=== PATIENT | male | born 1930 | race Hispanic/Latino ===

== ENCOUNTER 2018-06-06 09:20 | Observation (INO) | payer MEDICARE ==
[2018-06-06 09:35] VITALS: BMI 22.9
[2018-06-06] MEDS ORDERED: Sodium Chloride 0.9% 500 ML IV STA (10:12)
--- NOTE | 2018-06-06 10:21 | ED PDOC ---
HPI: General Adult Additional History Per: Patient Additional Complaint(s): 87 y/o M with PMH of HTN and HLD sent to the ER by PMD for evaluation and treatment of recent blood work abnormalities. Patient is also c/o 3 weeks hx of chest discomfort. Reports non-radiating chest pain on exertion, denies any SOB, dizziness, blurred vision, palpitations, weakness, headaches, f/c/n/v/d. Patient was seen by PMD yesterday for routine blood work check and found to have high WBC and low Hgb and Plts as per patient. PMH: HTN and HLD PSH: Hip replacement 10 years ago Allg: NKDA FH: Denies heart disease, + lung cancers in family SH: 5 years hx of smoking 60 years ago, denies alcohol or illicit drug use PMD: Dr. Hill <Michel Olmos - Last Filed: 06/06/18 10:21> <Singh Kelley - Last Filed: 06/06/18 13:41> Time Seen by Provider: 06/06/18 09:56 Chief Complaint (Nursing): Chest Pain Supervising Attending Note - Supervising Attending Note The Documented history was done by the: Physician Tool And Cutter Grinder The documented physical exam was done by the: Physician Tool And Cutter Grinder The documented procedures were done by the: Physician Tool And Cutter Grinder - Attestation: I have personally seen and examined this patient.: Yes I have fully participated in the care of the patient.: Yes I have reviewed all pertinent clinical information, including history, physical exam and plan: Yes - Notes: Notes:: Abnormal labs on routine blood work. Chest pain on exertion. <Singh Kelley - Last Filed: 06/06/18 13:41> Past Medical History Vital Signs: Last Vital Signs Temp 98 F 06/06/18 09:34 Pulse 73 06/06/18 09:41 Resp 14 06/06/18 09:41 BP 158/65 H 06/06/18 09:34 Pulse Ox 100 06/06/18 09:41 - Medical History PMH: Benign Prostatic Hyperplasia, HTN, Hypercholesterolemia Denies: HIV, Chronic Kidney Disease - Surgical History Surgical History: Cholecystectomy (lap rosie done 12/14/15) - Family History Family History: States: Unknown Family Hx - Immunization History Hx Tetanus Toxoid Vaccination: Yes Hx Influenza Vaccination: Yes Hx Pneumococcal Vaccination: Yes <OlmosMichel - Last Filed: 06/06/18 10:21> Vital Signs: Last Vital Signs Temp 98 F 06/06/18 09:34 Pulse 73 06/06/18 09:41 Resp 14 06/06/18 09:41 BP 122/68 06/06/18 10:04 Pulse Ox 100 06/06/18 10:24 <Singh Kelley - Last Filed: 06/06/18 13:41> - Home Medications Home Medications: Ambulatory Orders Medication Instructions Recorded Docusate [Colace] 100 mg PO DAILY #0 cap 12/25/15 Lisinopril [Zestril] 5 mg PO DAILY #0 tab 12/25/15 Tamsulosin [Flomax] 0.4 mg PO DAILY #0 cap 12/25/15 - Allergies Allergies/Adverse Reactions: Allergies Allergy/AdvReac Type Severity Reaction Status Date / Time No Known Allergies Allergy Verified 12/25/15 18:11 Review of Systems Constitutional: Negative for: Fever Eyes: Negative for: Pain ENT: Negative for: Ear Pain Cardiovascular: Positive for: Chest Pain. Negative for: Palpitations, Orthopnea, Paroxysmal Noc. Dyspnea Respiratory: Negative for: Cough, Shortness of Breath, Hemoptysis Gastrointestinal: Negative for: Nausea, Vomiting, Abdominal Pain Genitourinary Male: Negative for: Dysuria, Frequency Musculoskeletal: Negative for: Neck Pain, Shoulder Pain Skin: Negative for: Rash Neurological: Negative for: Weakness, Numbness, Incoordination, Confusion Psych: Negative for: Anxiety, Depression <Michel Olmos - Last Filed: 06/06/18 10:21> Physical Exam - Physical Exam Appears: Positive for: No Acute Distress Head Exam: Positive for: ATRAUMATIC, NORMAL INSPECTION, NORMOCEPHALIC Skin: Positive for: Normal Color Eye Exam: Positive for: Normal appearance ENT: Positive for: Normal ENT Inspection Neck: Positive for: Normal Cardiovascular/Chest: Positive for: Regular Rate, Rhythm, Chest Non Tender. Negative for: Bradycardia, Tachycardia, Irregularly Irregular Respiratory: Positive for: Normal Breath Sounds. Negative for: Decreased Breath Sounds, Accessory Muscle Use, Crackles, Stridor, Wheezing Gastrointestinal/Abdominal: Positive for: Normal Exam, Bowel Sounds, Soft. Negative for: Tenderness, Distended, Guarding Back: Positive for: Normal Inspection Extremity: Positive for: Normal ROM, Capillary Refill (normal ). Negative for: Tenderness, Pedal Edema, Calf Tenderness, Swelling Neurological/Psych: Positive for: Awake, Alert, Normal Tone, Oriented, jig grinder II- XII <Michel Olmos - Last Filed: 06/06/18 10:21> - Physical Exam Neck: Positive for: Normal Cardiovascular/Chest: Positive for: Regular Rate, Rhythm Respiratory: Positive for: Normal Breath Sounds <Singh Kelley - Last Filed: 06/06/18 13:41> - ECG O2 Sat by Pulse Oximetry: 100 - Progress ED Course And Treament: A/P: 87 y/o male with chest discomfort and abnormal labs in clinic - CBC - CMP - Trop - BNP - EKG - CXR - IVF Case discussed with Dr. Kelley, agrees with plan <Michel Olmos - Last Filed: 06/06/18 10:21> - Laboratory Results Result Diagrams: 06/06/18 10:20 06/06/18 10:20 Lab Results: PT 14.5 Seconds (9.8-13.1) H 06/06/18 10:20 INR 1.3 06/06/18 10:20 APTT 31.1 Seconds (25.6-37.1) 06/06/18 10:20 Troponin I 0.0140 ng/mL (0.00-0.120) 06/06/18 10:20 NT-Pro-B Natriuret Pep 653 pg/ml (0-900) 06/06/18 10:20 Total Bilirubin 0.5 mg/dl (0.2-1.3) 06/06/18 10:20 AST 22 U/L (17-59) 06/06/18 10:20 ALT 29 U/L (21-72) 06/06/18 10:20 Alkaline Phosphatase 106 U/L (38-126) 06/06/18 10:20 Total Protein 7.5 G/DL (6.3-8.2) 06/06/18 10:20 Albumin 4.2 g/dL (3.5-5.0) 06/06/18 10:20 Globulin 3.2 gm/dL (2.2-3.9) 06/06/18 10:20 Albumin/Globulin Ratio 1.3 (1.0-2.1) 06/06/18 10:20 Interpretation Of Abn Labs: 17.2 wbc, hg 7.7, bun 24, 5.1 k - ECG ECG: Positive for: Interpreted By Me, Viewed By Me ECG Rhythm: Positive for: Normal QRS, Normal ST Segment, Sinus Rhythm Pulse Ox Interpretation: Normal - Radiology X-Ray: Interpreted by Me, Viewed By Me X-Ray Interpretation: No Acute Disease - Progress ED Course And Treament: 1321: Stable. AAOx3. Pain free. Spoke with Dr. Hill. Will admit tele. Consults paged Dr. Castaneda and Dr. Webster. Will hold off on any ASA or plavix as pt. hg and platelets low. 1339: Spoke with Dr. Castaneda. Agrees with current plan and will consult; no additional tx or eval at this time. Spoke with Dr. Webster. Will consult. No additional tx or eval at this time. No ASA or plavix. <Singh Kelley - Last Filed: 06/06/18 13:41> Disposition <Michel Olmos - Last Filed: 06/06/18 10:21> - Patient ED Disposition Is Patient to be Admitted: Yes Counseled Patient/Family Regarding: Studies Performed, Diagnosis - Disposition Disposition Time: 11:30 - Pt Status Changed To: Hospital Disposition Of: Observation - POA Present On Arrival: None <Singh Kelley - Last Filed: 06/06/18 13:41> - Clinical Impression Clinical Impression: Chest pain, Thrombocytopenia, Anemia - Disposition Condition: FAIR
[2018-06-06 10:36] LABS: BASO % 0.1 % (0.0-2.0); EOS # 0.1 K/uL (0.0-0.7); EOS % 0.5 % (0.0-4.0); HEMOGLOBIN 7.7 g/dL (12.0-18.0); LYMPH # 3.4 K/uL (1.0-4.3); LYMPH % 19.7 % (20.0-40.0); MEAN CORPUSCULAR HEMOGLOBIN 35.9 pg (27.0-31.0); MEAN CORPUSCULAR HGB CONC 33.5 g/dL (33.0-37.0); MEAN PLATELET VOLUME 8.3 fl (7.2-11.7); MONO # 2.4 K/uL (0.0-0.8); MONO % 13.7 % (0.0-10.0); NEUT # 11.4 K/uL (1.8-7.0); NRBC % 0.2 % (0.0-0.0); RBC 2.15 Mil/uL (4.40-5.90); RED CELL DISTRIBUTION WIDTH 16.7 % (11.5-14.5); WHITE BLOOD COUNT 17.2 K/uL (4.8-10.8)
[2018-06-06 10:38] LABS: INR 1.3; PROTHROMBIN TIME 14.5 Seconds (9.8-13.1)
[2018-06-06 10:40] LABS: PARTIAL THROMBOPLASTIN TIME 31.1 Seconds (25.6-37.1)
[2018-06-06 10:45] LABS: ALB/GLOB RATIO 1.3 (1.0-2.1); ALBUMIN 4.2 g/dL (3.5-5.0); ALT/SGPT 29 U/L (21-72); AST/SGOT 22 U/L (17-59); BLOOD UREA NITROGEN 24 mg/dl (9-20); CALCIUM 9.7 mg/dL (8.4-10.2); GFR NON-AFRICAN AMERICAN > 60
[2018-06-06 10:56] LABS: B-TYPE NATRIURETIC PEPTIDE 653 pg/ml (0-900)
[2018-06-06 11:09] LABS: MEAN CELL VOLUME 107.1 fl (80.0-94.0)
[2018-06-06] MEDS ORDERED: Sod Polystyrene Sulf 15 gm/60 ml Susp PO STA (12:58)
--- NOTE | 2018-06-06 15:43 | RAD ---
Date of service: 06/06/2018 HISTORY: chest pain COMPARISON: Comparison made with chest radiograph 12/24/2015. FINDINGS: LUNGS: No active pulmonary disease. Tiny nodular density left upper lobe overlying the left anterior 2nd rib could represent vessel on end artifact versus tiny nodule or granuloma. PLEURA: No significant pleural effusion identified, no pneumothorax apparent. CARDIOVASCULAR: Mild aortic atherosclerotic calcification present. Heart size is upper limits of normal/borderline enlarged. No pulmonary vascular congestion. OSSEOUS STRUCTURES: No significant abnormalities. VISUALIZED UPPER ABDOMEN: Normal. OTHER FINDINGS: None. IMPRESSION: No active disease. Tiny nodular density left upper lobe overlying the left anterior 2nd rib could represent vessel on end artifact versus tiny nodule or granuloma.
--- NOTE | 2018-06-06 17:33 | CARD ---
APPROVED REPORT Date of service: 06/06/2018 EKG Measurement Heart [id number] ID [id number] <Conclusion> Normal sinus rhythm Normal ECG
--- NOTE | 2018-06-06 19:18 | CP.PCM.PN ---
Subjective - Date & Time of Evaluation Date of Evaluation: 06/06/18 Time of Evaluation: 22:22 - Subjective Subjective: 87 yo admitted for chest discomfort on exertion and Hematological abnormalities Objective - Vital Signs/Intake and Output Vital Signs (last 24 hours): Temp Pulse Resp BP Pulse Ox 98 F 74 16 129/68 96 06/06/18 09:34 06/06/18 19:01 06/06/18 19:01 06/06/18 19:01 06/06/18 19:01 - Labs Labs: 06/06/18 10:20 06/06/18 10:20 PT 14.5 Seconds (9.8-13.1) H 06/06/18 10:20 INR 1.3 06/06/18 10:20 APTT 31.1 Seconds (25.6-37.1) 06/06/18 10:20 - Respiratory Exam Respiratory Exam: NORMAL BREATHING PATTERN - Cardiovascular Exam Cardiovascular Exam: REGULAR RHYTHM - GI/Abdominal Exam GI & Abdominal Exam: Normal Bowel Sounds Assessment and Plan - Assessment and Plan (Free Text) Assessment: Anemia Leukocytosis thrombocytopenia CLL ?? Hematology Chest discomfort on exertion 2 to Anemia?? Cardiology
--- NOTE | 2018-06-06 20:54 | CP.PCM.CON ---
History of Present Illness - History of Present Illness History of Present Illness: 87 year old male with a history of HL, HTN, presenting with chest pain, found to have leukocytosis, anemia, and thrombocytopenia. The patient reports to exertional chest pain for about 3 weeks time. He noticed his symptoms after shoveling snow. He denies abnormal bleeding and bruising. He was seen by him PMD who did blood work and referred him to the hospital. His hgb was 7.7 and plt 34,000. Leukoctyosis with monocytosis. He is s/p 1U PRBC. Past medical history: HL, HTN Past surgical history: Cholecystectomy, left hip replacement Family history: Father, sister, brother had lung cancer (smokers). Social history: Denies tobacco, drink a glass of wine and scotch, denies illicit drug use. Allergies: NKA Review of systems: All remaining review of systems including HEENT, cardiovascular, respiratory, gastrointestinal, genitourinary, musculoskeletal, dermatologic, neurologic, and psychiatric are negative unless mentioned in the HPI. Past Patient History - Past Medical History & Family History Past Medical History?: Yes - Past Social History Smoking Status: Former Smoker - CARDIAC Hx Cardiac Disorders: Yes (HTN, CHOLESTEROL) - PULMONARY Hx Respiratory Disorders: No - NEUROLOGICAL Hx Neurological Disorder: No - HEENT Hx HEENT Problems: No - RENAL Hx Chronic Kidney Disease: No - ENDOCRINE/METABOLIC Hx Endocrine Disorders: No - HEMATOLOGICAL/ONCOLOGICAL Hx Human Immunodeficiency Virus (HIV): No - INTEGUMENTARY Hx Dermatological Problems: No - MUSCULOSKELETAL/RHEUMATOLOGICAL Hx Musculoskeletal Disorders: No Hx Falls: No - GASTROINTESTINAL Hx Gastrointestinal Disorders: No - GENITOURINARY/GYNECOLOGICAL Hx Genitourinary Disorders: Yes (UTI) - PSYCHIATRIC Hx Psychophysiologic Disorder: No Hx Substance Use: No - SURGICAL HISTORY Hx Cholecystectomy: Yes (lap rosie done 12/14/15) - ANESTHESIA Hx Anesthesia: Yes Hx Anesthesia Reactions: No Meds Allergies/Adverse Reactions: Allergies Allergy/AdvReac Type Severity Reaction Status Date / Time No Known Allergies Allergy Verified 12/25/15 18:11 Physical Exam - Head Exam Head Exam: ATRAUMATIC - Eye Exam Eye Exam: Normal appearance - ENT Exam ENT Exam: Mucous Membranes Dry - Respiratory Exam Respiratory Exam: NORMAL BREATHING PATTERN - Cardiovascular Exam Cardiovascular Exam: +S1, +S2 - GI/Abdominal Exam GI & Abdominal Exam: Normal Bowel Sounds - Extremities Exam Extremities exam: Positive for: normal inspection - Neurological Exam Neurological exam: Oriented x3 - Psychiatric Exam Psychiatric exam: Normal Affect, Normal Mood - Skin Skin Exam: Warm Results - Vital Signs Recent Vital Signs: Last Vital Signs Temp 98.3 F 06/06/18 19:48 Pulse 74 06/06/18 19:01 Resp 16 06/06/18 19:01 BP 129/68 06/06/18 19:01 Pulse Ox 96 06/06/18 19:01 - Labs Result Diagrams: 06/06/18 10:20 06/06/18 10:20 Labs: Laboratory Results - last 24 hr 06/06/18 06/06/18 06/06/18 10:20 10:20 10:20 WBC 17.2 H D RBC 2.15 L Hgb 7.7 L D Hct 23.0 L MCV 107.1 H D MCH 35.9 H MCHC 33.5 RDW 16.7 H Plt Count 34 L D MPV 8.3 Neut % (Auto) 66.0 Lymph % (Auto) 19.7 L [place] % (Auto) 13.7 H Eos % (Auto) 0.5 Baso % (Auto) 0.1 Neut # (Auto) 11.4 H Lymph # (Auto) 3.4 [place] # (Auto) 2.4 H Eos # (Auto) 0.1 Baso # (Auto) 0.0 PT 14.5 H INR 1.3 APTT 31.1 Sodium 144 Potassium 5.1 H Chloride 104 Carbon Dioxide 25 Anion Gap 20 BUN 24 H Creatinine 1.0 Est GFR ( Amer) > 60 Est GFR (Non-Af Amer) > 60 POC Glucose (mg/dL) Random Glucose 109 Calcium 9.7 Total Bilirubin 0.5 AST 22 ALT 29 Alkaline Phosphatase 106 Troponin I 0.0140 NT-Pro-B Natriuret Pep 653 Total Protein 7.5 Albumin 4.2 Globulin 3.2 Albumin/Globulin Ratio 1.3 06/06/18 10:35 WBC RBC Hgb Hct MCV MCH MCHC RDW Plt Count MPV Neut % (Auto) Lymph % (Auto) [place] % (Auto) Eos % (Auto) Baso % (Auto) Neut # (Auto) Lymph # (Auto) [place] # (Auto) Eos # (Auto) Baso # (Auto) PT INR APTT Sodium Potassium Chloride Carbon Dioxide Anion Gap BUN Creatinine Est GFR ( Amer) Est GFR (Non-Af Amer) POC Glucose (mg/dL) 101 Random Glucose Calcium Total Bilirubin AST ALT Alkaline Phosphatase Troponin I NT-Pro-B Natriuret Pep Total Protein Albumin Globulin Albumin/Globulin Ratio Assessment & Plan (1) Anemia Assessment and Plan: retic count, b12, folate, ferritin, FOBT to further characterize agree with PRBC transfusion; s/p 1U PRBC Status: Acute (2) Thrombocytopenia Assessment and Plan: will check HIV and hepatitis panel Status: Acute (3) Leukocytosis Assessment and Plan: monocytosis rule out bone marrow pathology ? leukemia ?MDS will perform bone marrow aspirate and biopsy tomorrow morning Thank you for this interesting consult. Status: Acute
[2018-06-07] MEDS ORDERED: Cholecalciferol 1,000 INTLU TAB PO SCH (09:00)
[2018-06-07] MEDS ORDERED: FOLIC ACID PO SCH (09:00)
[2018-06-07] MEDS ORDERED: Magnesium Oxide 400 mg Tab UD PO SCH (09:00)
[2018-06-07] MEDS ORDERED: IRON PO SCH (09:00)
[2018-06-07] MEDS ORDERED: MULTIVITAMIN PO SCH (09:00)
[2018-06-07] MEDS ORDERED: MAGNESIUM OXIDE PO SCH (09:00)
[2018-06-07] MEDS ORDERED: Multivitamin With Minerals Tab PO SCH (09:00)
[2018-06-07 09:37] LABS: BASO % 0.2 % (0.0-2.0); EOS # 0.1 K/uL (0.0-0.7); EOS % 0.3 % (0.0-4.0); HEMOGLOBIN 7.6 g/dL (12.0-18.0); LYMPH # 3.3 K/uL (1.0-4.3); LYMPH % 18.1 % (20.0-40.0); MEAN CORPUSCULAR HEMOGLOBIN 35.6 pg (27.0-31.0); MEAN CORPUSCULAR HGB CONC 33.3 g/dL (33.0-37.0); MEAN PLATELET VOLUME 9.4 fl (7.2-11.7); MONO # 2.1 K/uL (0.0-0.8); MONO % 11.4 % (0.0-10.0); NEUT # 12.9 K/uL (1.8-7.0); NRBC % 0.3 % (0.0-0.0); RBC 2.13 Mil/uL (4.40-5.90); RED CELL DISTRIBUTION WIDTH 16.5 % (11.5-14.5); WHITE BLOOD COUNT 18.4 K/uL (4.8-10.8)
[2018-06-07 09:44] LABS: ALB/GLOB RATIO 1.3 (1.0-2.1); ALT/SGPT 22 U/L (21-72); AST/SGOT 19 U/L (17-59); BLOOD UREA NITROGEN 21 mg/dl (9-20); CALCIUM 8.9 mg/dL (8.4-10.2); GFR NON-AFRICAN AMERICAN > 60
--- NOTE | 2018-06-07 11:18 | CP.PCM.CON ---
History of Present Illness - History of Present Illness History of Present Illness: 87 yo male admitted with hematologic abnormalities , seen by hematology bone marrow pending. Reported chest pain with activity probably secondary to low Hb. Transfusion pending. No chest pain. Troponin negative, EKG no acute changes Past Patient History - Past Medical History & Family History Past Medical History?: Yes - Past Social History Smoking Status: Never Smoked - CARDIAC Hx Cardiac Disorders: Yes (HTN, CHOLESTEROL) - PULMONARY Hx Respiratory Disorders: No - NEUROLOGICAL Hx Neurological Disorder: No - HEENT Hx HEENT Problems: No - RENAL Hx Chronic Kidney Disease: No - ENDOCRINE/METABOLIC Hx Endocrine Disorders: No - HEMATOLOGICAL/ONCOLOGICAL Hx Human Immunodeficiency Virus (HIV): No - INTEGUMENTARY Hx Dermatological Problems: No - MUSCULOSKELETAL/RHEUMATOLOGICAL Hx Musculoskeletal Disorders: No Hx Falls: No - GASTROINTESTINAL Hx Gastrointestinal Disorders: No - GENITOURINARY/GYNECOLOGICAL Hx Genitourinary Disorders: Yes (UTI) - PSYCHIATRIC Hx Psychophysiologic Disorder: No Hx Substance Use: No - SURGICAL HISTORY Hx Cholecystectomy: Yes (lap rosie done 12/14/15) - ANESTHESIA Hx Anesthesia: Yes Hx Anesthesia Reactions: No Meds Allergies/Adverse Reactions: Allergies Allergy/AdvReac Type Severity Reaction Status Date / Time No Known Allergies Allergy Verified 12/25/15 18:11 - Medications Medications: Current Medications Atorvastatin Calcium (Lipitor) 10 mg PO DAILY@2200 [facility] Cholecalciferol (Vitamin D) 1,000 intlu PO DAILY [facility] Last Admin: 06/07/18 09:55 Dose: 1,000 intlu Lisinopril (Zestril) 5 mg PO DAILY [facility] Last Admin: 06/07/18 09:54 Dose: 5 mg Magnesium Oxide (Mag-Ox) 200 mg PO DAILY [facility] Last Admin: 06/07/18 09:55 Dose: 200 mg Multivitamins/Minerals (Therapeutic-M Tab) 1 tab PO DAILY [facility] Last Admin: 06/07/18 09:54 Dose: 1 tab Tamsulosin HCl (Flomax) 0.4 mg PO DAILY [facility] Last Admin: 06/07/18 09:54 Dose: 0.4 mg Physical Exam - Respiratory Exam Respiratory Exam: Clear to Auscultation Bilateral - Cardiovascular Exam Cardiovascular Exam: REGULAR RHYTHM - GI/Abdominal Exam GI & Abdominal Exam: Normal Bowel Sounds - Extremities Exam Extremities exam: Positive for: normal inspection Results - Vital Signs Recent Vital Signs: Last Vital Signs Temp 98.2 F 06/07/18 09:00 Pulse 69 06/07/18 09:54 Resp 18 06/07/18 09:00 BP 115/60 06/07/18 09:54 Pulse Ox 97 06/07/18 09:00 - Labs Result Diagrams: 06/07/18 09:15 06/07/18 09:15 Labs: Laboratory Results - last 24 hr 06/07/18 06/07/18 06/07/18 09:15 09:15 09:30 WBC 18.4 H RBC 2.13 L Hgb 7.6 L Hct 22.8 L MCV 107.0 H MCH 35.6 H MCHC 33.3 RDW 16.5 H Plt Count 32 L MPV 9.4 Neut % (Auto) 70.0 Lymph % (Auto) 18.1 L [place] % (Auto) 11.4 H Eos % (Auto) 0.3 Baso % (Auto) 0.2 Neut # (Auto) 12.9 H Lymph # (Auto) 3.3 [place] # (Auto) 2.1 H Eos # (Auto) 0.1 Baso # (Auto) 0.0 Sodium 140 Potassium 4.9 Chloride 109 H Carbon Dioxide 24 Anion Gap 12 BUN 21 H Creatinine 1.0 Est GFR ( Amer) > 60 Est GFR (Non-Af Amer) > 60 Random Glucose 152 H Calcium 8.9 Phosphorus Magnesium Total Bilirubin 0.5 AST 19 ALT 22 Alkaline Phosphatase 99 Total Protein 7.0 Albumin 4.0 Globulin 3.0 Albumin/Globulin Ratio 1.3 HIV-1 Ab Rapid Screen Non reactive Blood Type Antibody Screen Crossmatch BBK History Checked 06/07/18 06/07/18 09:30 09:30 WBC RBC Hgb Hct MCV MCH MCHC RDW Plt Count MPV Neut % (Auto) Lymph % (Auto) [place] % (Auto) Eos % (Auto) Baso % (Auto) Neut # (Auto) Lymph # (Auto) [place] # (Auto) Eos # (Auto) Baso # (Auto) Sodium Potassium Chloride Carbon Dioxide Anion Gap BUN Creatinine Est GFR ( Amer) Est GFR (Non-Af Amer) Random Glucose Calcium Phosphorus 3.3 Magnesium 2.2 Total Bilirubin AST ALT Alkaline Phosphatase Total Protein Albumin Globulin Albumin/Globulin Ratio HIV-1 Ab Rapid Screen Blood Type A POSITIVE Antibody Screen Negative Crossmatch See Detail BBK History Checked No verified bt Assessment & Plan - Assessment and Plan (Free Text) Assessment: Chest pain most likely due to anemia Await Hematology w/u
[2018-06-07 12:23] LABS: HEPATITIS B SURFACE AG Negative (NEGATIVE)
[2018-06-07] MEDS ORDERED: Lidocaine 2% Inj (20ml) SC ONE (12:26)
[2018-06-07 12:28] LABS: HEPATITIS A IGM NEGATIVE (NEGATIVE)
[2018-06-07 12:41] LABS: HEPATITIS C ANTIBODY NEGATIVE (NEGATIVE)
[2018-06-07 13:26] LABS: HEPATITIS B CORE AB NEGATIVE (NEGATIVE)
--- NOTE | 2018-06-07 13:54 | CP.PCM.PN ---
Subjective - Date & Time of Evaluation Date of Evaluation: 06/07/18 Time of Evaluation: 12:00 - Subjective Subjective: Bone marrow aspiration and biopsy procedure Indication: Leukocytosis, anemia, thrombocytopenia; rule out bone marrow pathology - Time-out was called to confirm: patients name and date of , procedure, side and site of biopsy, safety procedures followed. - Performed by: self. - Informed consent: signed by patient. - Biopsy site: [right] superior posterior iliac crest. - Patient position: [left lateral decubitus] - Preparation and technique: sterile preparation of site with [place], Chloraprep, draped to expose aspirate/biopsy area, local anesthesia with 2% lidocaine (approximately 10ml), frequent pressure application on incision to maintain hemostasis. - Tissue obtained: bone marrow aspirate was unable to be obtained (dry tap) despite 3 attempts. 2 core biopsies obtained and touch prep performed. - Toleration of procedure and any complications: slight localized bleeding (<1ml). Patient tolerated procedure well with minimal pain. Objective - Vital Signs/Intake and Output Vital Signs (last 24 hours): Temp Pulse Resp BP Pulse Ox 98.5 F 75 17 120/50 L 96 06/07/18 13:41 06/07/18 13:41 06/07/18 13:41 06/07/18 13:41 06/07/18 12:00 Intake and Output: 06/07/18 06/07/18 06:59 18:59 Intake Total 20 Balance 20 - Medications Medications: Current Medications Atorvastatin Calcium (Lipitor) 10 mg PO DAILY@2200 [facility] Cholecalciferol (Vitamin D) 1,000 intlu PO DAILY [facility] Last Admin: 06/07/18 09:55 Dose: 1,000 intlu Lisinopril (Zestril) 5 mg PO DAILY [facility] Last Admin: 06/07/18 09:54 Dose: 5 mg Magnesium Oxide (Mag-Ox) 200 mg PO DAILY [facility] Last Admin: 06/07/18 09:55 Dose: 200 mg Multivitamins/Minerals (Therapeutic-M Tab) 1 tab PO DAILY [facility] Last Admin: 06/07/18 09:54 Dose: 1 tab Tamsulosin HCl (Flomax) 0.4 mg PO DAILY [facility] Last Admin: 06/07/18 09:54 Dose: 0.4 mg - Labs Labs: 06/07/18 09:15 06/07/18 09:15 PT 14.5 Seconds (9.8-13.1) H 06/06/18 10:20 INR 1.3 06/06/18 10:20 APTT 31.1 Seconds (25.6-37.1) 06/06/18 10:20 - Head Exam Head Exam: ATRAUMATIC - Eye Exam Eye Exam: Normal appearance - ENT Exam ENT Exam: Mucous Membranes Dry - Respiratory Exam Respiratory Exam: NORMAL BREATHING PATTERN - Cardiovascular Exam Cardiovascular Exam: +S1, +S2 - GI/Abdominal Exam GI & Abdominal Exam: Normal Bowel Sounds - Extremities Exam Extremities Exam: Normal Inspection Assessment and Plan (1) Anemia Assessment & Plan: f/u bone marrow biopsy results transfusion support PRN cleared for D/C from heme/onc standpoint for hgb above 8 and plt above 20,000 Status: Acute (2) Thrombocytopenia Status: Acute (3) Leukocytosis Status: Acute
--- NOTE | 2018-06-07 16:19 | CP.PCM.PCO ---
Assessment/Plan - Assessment and Plan (Free Text) Assessment: Patient seen and examined this afternoon. Receiving his 1 unit blood transfusion, tolerating well. Vss S/p Bone Marrow biopsy with Dr Castaneda earlier today. No signs of bleeding, Denies chest pain shortness of breath, abd pain nausea or vomiting. Cleared by Hem/Onc and Cardiology for discharge. Discussed plan with Dr Hill who agrees on sending patient home.
[2018-06-07 16:25] VITALS: BP 157/69; PULSE 78; RESP 18; TEMP 98.3; O2SAT 95
--- NOTE | 2018-06-07 17:20 | CP.PCM.HP ---
Past Patient History - Past Medical History & Family History Past Medical History?: Yes - Past Social History Smoking Status: Never Smoked - CARDIAC Hx Cardiac Disorders: Yes (HTN, CHOLESTEROL) - PULMONARY Hx Respiratory Disorders: No - NEUROLOGICAL Hx Neurological Disorder: No - HEENT Hx HEENT Problems: No - RENAL Hx Chronic Kidney Disease: No - ENDOCRINE/METABOLIC Hx Endocrine Disorders: No - HEMATOLOGICAL/ONCOLOGICAL Hx Human Immunodeficiency Virus (HIV): No - INTEGUMENTARY Hx Dermatological Problems: No - MUSCULOSKELETAL/RHEUMATOLOGICAL Hx Musculoskeletal Disorders: No Hx Falls: No - GASTROINTESTINAL Hx Gastrointestinal Disorders: No - GENITOURINARY/GYNECOLOGICAL Hx Genitourinary Disorders: Yes (UTI) - PSYCHIATRIC Hx Psychophysiologic Disorder: No Hx Substance Use: No - SURGICAL HISTORY Hx Cholecystectomy: Yes (lap rosie done 12/14/15) - ANESTHESIA Hx Anesthesia: Yes Hx Anesthesia Reactions: No Meds Allergies/Adverse Reactions: Allergies Allergy/AdvReac Type Severity Reaction Status Date / Time No Known Allergies Allergy Verified 12/25/15 18:11 Physical Exam - Respiratory Exam Respiratory Exam: NORMAL BREATHING PATTERN - Cardiovascular Exam Cardiovascular Exam: REGULAR RHYTHM - GI/Abdominal Exam GI & Abdominal Exam: Normal Bowel Sounds Results - Vital Signs Recent Vital Signs: Last Vital Signs Temp 98.3 F 06/07/18 16:25 Pulse 78 06/07/18 16:25 Resp 18 06/07/18 16:25 BP 157/69 H 06/07/18 16:25 Pulse Ox 95 06/07/18 16:24 - Labs Result Diagrams: 06/07/18 09:15 06/07/18 09:15 Labs: Laboratory Results - last 24 hr 06/07/18 06/07/18 06/07/18 09:15 09:15 09:30 WBC 18.4 H RBC 2.13 L Hgb 7.6 L Hct 22.8 L MCV 107.0 H MCH 35.6 H MCHC 33.3 RDW 16.5 H Plt Count 32 L Manual Plt Count 45 L* MPV 9.4 Neut % (Auto) 70.0 Lymph % (Auto) 18.1 L [place] % (Auto) 11.4 H Eos % (Auto) 0.3 Baso % (Auto) 0.2 Neut # (Auto) 12.9 H Lymph # (Auto) 3.3 [place] # (Auto) 2.1 H Eos # (Auto) 0.1 Baso # (Auto) 0.0 Sodium 140 Potassium 4.9 Chloride 109 H Carbon Dioxide 24 Anion Gap 12 BUN 21 H Creatinine 1.0 Est GFR ( Amer) > 60 Est GFR (Non-Af Amer) > 60 Random Glucose 152 H Calcium 8.9 Phosphorus Magnesium Total Bilirubin 0.5 AST 19 ALT 22 Alkaline Phosphatase 99 Total Protein 7.0 Albumin 4.0 Globulin 3.0 Albumin/Globulin Ratio 1.3 Hepatitis A IgM Ab Negative Hep Bs Antigen Negative Hep B Core IgM Ab Negative Hepatitis C Antibody Negative HIV-1 Ab Rapid Screen Blood Type Blood Type Confirm Antibody Screen Crossmatch BBK History Checked 06/07/18 06/07/18 06/07/18 09:30 09:30 09:30 WBC RBC Hgb Hct MCV MCH MCHC RDW Plt Count Manual Plt Count MPV Neut % (Auto) Lymph % (Auto) [place] % (Auto) Eos % (Auto) Baso % (Auto) Neut # (Auto) Lymph # (Auto) [place] # (Auto) Eos # (Auto) Baso # (Auto) Sodium Potassium Chloride Carbon Dioxide Anion Gap BUN Creatinine Est GFR ( Amer) Est GFR (Non-Af Amer) Random Glucose Calcium Phosphorus 3.3 Magnesium 2.2 Total Bilirubin AST ALT Alkaline Phosphatase Total Protein Albumin Globulin Albumin/Globulin Ratio Hepatitis A IgM Ab Hep Bs Antigen Hep B Core IgM Ab Hepatitis C Antibody HIV-1 Ab Rapid Screen Non reactive Blood Type A POSITIVE Blood Type Confirm Antibody Screen Negative Crossmatch See Detail BBK History Checked No verified bt 06/07/18 10:30 WBC RBC Hgb Hct MCV MCH MCHC RDW Plt Count Manual Plt Count MPV Neut % (Auto) Lymph % (Auto) [place] % (Auto) Eos % (Auto) Baso % (Auto) Neut # (Auto) Lymph # (Auto) [place] # (Auto) Eos # (Auto) Baso # (Auto) Sodium Potassium Chloride Carbon Dioxide Anion Gap BUN Creatinine Est GFR ( Amer) Est GFR (Non-Af Amer) Random Glucose Calcium Phosphorus Magnesium Total Bilirubin AST ALT Alkaline Phosphatase Total Protein Albumin Globulin Albumin/Globulin Ratio Hepatitis A IgM Ab Hep Bs Antigen Hep B Core IgM Ab Hepatitis C Antibody HIV-1 Ab Rapid Screen Blood Type Blood Type Confirm A POSITIVE Antibody Screen Crossmatch BBK History Checked Assessment & Plan - Assessment and Plan (Free Text) Assessment: Anemia Leukocytosis thrombocytopenia CLL ?? Hematology Chest discomfort on exertion 2 to Anemia?? Cardiology
== END 2018-06-07 19:30 | disposition home or self-care (01) ==
LOC: H.ER 09:20 → H.ERHOLD 13:17 → H.TEL 22:52
PROVIDERS: ADMIT Family Medicine Geriatric Medicine; ATTEND Family Medicine Geriatric Medicine
DX: R07.89 Other chest pain (principal); D64.9 Anemia, unspecified; E78.5 Hyperlipidemia, unspecified; I10 Essential (primary) hypertension; D72.829 Elevated white blood cell count, unspecified; D69.6 Thrombocytopenia, unspecified; N40.0 Benign prostatic hyperplasia without lower urinary tract symptoms; Z87.891 Personal history of nicotine dependence; Z90.49 Acquired absence of other specified parts of digestive tract; Z96.642 Presence of left artificial hip joint; E78.00 Pure hypercholesterolemia, unspecified; D72.821 Monocytosis (symptomatic); Z80.1 Family history of malignant neoplasm of trachea, bronchus and lung
CPT/HCPCS: 36415; 36430; 71045; 80053; 80074; 82948; 83735; 83880; 84100; 84484; 85025; 85610; 85730; 86850; 86900; 86920; 87390; 88305; 88313; 93005; 96360; 96361; 96372; 99285; G0378; J7040; P9051

== ENCOUNTER 2018-06-26 11:58 | Inpatient (IN) | payer MEDICARE ==
[2018-06-26 11:58] VITALS: BMI 22.9
[2018-06-26] MEDS ORDERED: Sodium Chloride 0.9% 1,000 ML IV STA (13:06)
--- NOTE | 2018-06-26 13:12 | ED PDOC ---
HPI: General Adult Time Seen by Provider: 06/26/18 12:49 Chief Complaint (Nursing): Abnormal Labs Chief Complaint (Provider): low platelets and hemoglobin History Per: Patient History/Exam Limitations: no limitations Onset/Duration Of Symptoms: Days (1 month) Additional Complaint(s): Pt. with low hemoglobin and platelets. Has had chest discomfort on walking. No pain on rest. Seen by Dr. Hill and Leonel. Dr. Castaneda saw low hg and platelets from yesterday's labs so sent to the ER. No abd pain, nausea, vomit, diarrhea, weakness, dyspnea. No bleeding from anywhere. Past Medical History Reviewed: Nursing Documentation, Vital Signs Vital Signs: Last Vital Signs Temp 98.4 F 06/26/18 12:00 Pulse 97 H 06/26/18 12:00 Resp 18 06/26/18 12:00 BP 135/67 06/26/18 12:00 Pulse Ox 98 06/26/18 12:00 - Medical History PMH: Benign Prostatic Hyperplasia, HTN, Hypercholesterolemia Denies: HIV, Chronic Kidney Disease - Surgical History Surgical History: Cholecystectomy (lap rosie done 12/14/15) - Family History Family History: States: Unknown Family Hx - Immunization History Hx Tetanus Toxoid Vaccination: Yes Hx Influenza Vaccination: Yes (UTD) Hx Pneumococcal Vaccination: Yes - Home Medications Home Medications: Ambulatory Orders Medication Instructions Recorded Cholecalciferol [Vitamin D 1000 IU] 1 tab PO DAILY 06/06/18 Lisinopril [Zestril] 5 mg PO DAILY 06/06/18 Magnesium Oxide [Mag-Oxide] 1 tab PO DAILY 06/06/18 Multivitamin/Iron/Folic Acid 1 tab PO DAILY 06/06/18 [Centrum Adults Tablet] Simvastatin [Zocor] 20 mg PO DAILY 06/06/18 Tamsulosin [Flomax] 0.4 mg PO DAILY 06/06/18 - Allergies Allergies/Adverse Reactions: Allergies Allergy/AdvReac Type Severity Reaction Status Date / Time No Known Allergies Allergy Verified 06/26/18 12:05 Review of Systems ROS Statement: Except As Marked, All Systems Reviewed And Found Negative Cardiovascular: Positive for: Chest Pain Physical Exam - Reviewed Nursing Documentation Reviewed: Yes Vital Signs Reviewed: Yes - Physical Exam Appears: Positive for: Uncomfortable Head Exam: Positive for: ATRAUMATIC, NORMAL INSPECTION, NORMOCEPHALIC Skin: Positive for: Normal Color, Warm, DRY Eye Exam: Positive for: EOMI, Normal appearance, PERRL ENT: Positive for: Normal ENT Inspection Neck: Positive for: Normal, Painless ROM Cardiovascular/Chest: Positive for: Regular Rate, Rhythm, Chest Non Tender. Negative for: Edema Respiratory: Positive for: CNT, Normal Breath Sounds Gastrointestinal/Abdominal: Positive for: Normal Exam, Soft Back: Positive for: Normal Inspection Extremity: Positive for: Normal ROM Neurological/Psych: Positive for: Awake, Alert, Normal Tone - Laboratory Results Result Diagrams: 06/26/18 13:27 06/26/18 13:27 Interpretation Of Abn Labs: low hg and platelets from 06/25/18. - ECG O2 Sat by Pulse Oximetry: 98 Pulse Ox Interpretation: Normal - Progress ED Course And Treament: 1312: Stable. Spoke with Dr. Castaneda. Well known pt. to him. He wants pt. to get 2 units PRBCs and 1 bag platelets. 1500: Spoke with Dr. Hill. Will admit. Made aware of findings. - Critical Care Total Time (In Min): 30 Documented Critical Care: Time excludes all time spent performint seperately billable procedures Disposition - Clinical Impression Clinical Impression: Anemia, Thrombocytopenia - Patient ED Disposition Is Patient to be Admitted: Yes Counseled Patient/Family Regarding: Studies Performed, Diagnosis - Disposition Disposition Time: 13:00 Condition: FAIR Forms: CareFamily ([place]) - Pt Status Changed To: Hospital Disposition Of: Inpatient - Admit Certification Admit to Inpatient:: After my assessment, the patient will require hospitalization for at least two midnights. This is because of the severity of symptoms shown, intensity of services needed, and/or the medical risk in this patient being treated as an outpatient. - POA Present On Arrival: None
[2018-06-26 13:49] LABS: BASO # 0.3 K/uL (0.0-0.2); BASO % 0.4 % (0.0-2.0); EOS # 0.1 K/uL (0.0-0.7); EOS % 0.1 % (0.0-4.0); LYMPH # 5.1 K/uL (1.0-4.3); LYMPH % 8.3 % (20.0-40.0); MEAN CELL VOLUME 111.7 fl (80.0-94.0); MEAN CORPUSCULAR HEMOGLOBIN 33.6 pg (27.0-31.0); MEAN CORPUSCULAR HGB CONC 30.1 g/dL (33.0-37.0); MEAN PLATELET VOLUME 8.6 fl (7.2-11.7); MONO # 25.7 K/uL (0.0-0.8); MONO % 42.2 % (0.0-10.0); NEUT # 29.8 K/uL (1.8-7.0); NRBC % 0.8 % (0.0-0.0); RBC 1.87 Mil/uL (4.40-5.90); RED CELL DISTRIBUTION WIDTH 19.1 % (11.5-14.5)
[2018-06-26 13:57] LABS: INR 1.3; PROTHROMBIN TIME 14.3 Seconds (9.8-13.1)
[2018-06-26 14:00] LABS: PARTIAL THROMBOPLASTIN TIME 31.4 Seconds (25.6-37.1)
[2018-06-26 14:09] LABS: ALB/GLOB RATIO 1.3 (1.0-2.1); ALBUMIN 4.1 g/dL (3.5-5.0); ALT/SGPT 21 U/L (21-72); AST/SGOT 24 U/L (17-59); BLOOD UREA NITROGEN 28 mg/dl (9-20); CALCIUM 8.8 mg/dL (8.4-10.2); GFR NON-AFRICAN AMERICAN > 60
[2018-06-26 14:15] LABS: HEMOGLOBIN 6.3 g/dL (12.0-18.0)
--- NOTE | 2018-06-26 14:18 | RAD ---
Date of service: 06/26/2018 HISTORY: dyspnea COMPARISON: Portable chest 06/06/2018. TECHNIQUE: 1 view obtained. FINDINGS: LUNGS: No active pulmonary disease. PLEURA: No significant pleural effusion identified, no pneumothorax apparent. CARDIOVASCULAR: No aortic atherosclerotic calcification present. Normal cardiac size. No pulmonary vascular congestion. OSSEOUS STRUCTURES: No significant abnormalities. VISUALIZED UPPER ABDOMEN: Surgical clips in the right upper quadrant abdomen once again. OTHER FINDINGS: None. IMPRESSION: No interval acute cardiopulmonary disease appreciated.
--- NOTE | 2018-06-26 19:57 | CARD ---
APPROVED REPORT Date of service: 06/26/2018 EKG Measurement Heart [id number] <Conclusion> Normal sinus rhythm Normal ECG
--- NOTE | 2018-06-26 20:36 | CP.PCM.HP ---
History of Present Illness - History of Present Illness History of Present Illness: 87 yo admitted for anemia/ thrombocytopenia Present on Admission - Present on Admission Any Indicators Present on Admission: No Past Patient History - Past Medical History & Family History Past Medical History?: Yes - Past Social History Smoking Status: Never Smoked - CARDIAC Hx Hypercholesterolemia: Yes Hx Hypertension: Yes - PULMONARY Hx Respiratory Disorders: No - NEUROLOGICAL Hx Neurological Disorder: No - HEENT Hx HEENT Problems: No - RENAL Hx Chronic Kidney Disease: No - ENDOCRINE/METABOLIC Hx Endocrine Disorders: No - HEMATOLOGICAL/ONCOLOGICAL Hx Human Immunodeficiency Virus (HIV): No - INTEGUMENTARY Hx Dermatological Problems: No - MUSCULOSKELETAL/RHEUMATOLOGICAL Hx Musculoskeletal Disorders: Yes Hx Falls: No Hx Osteoarthritis: Yes - GASTROINTESTINAL Hx Gastrointestinal Disorders: No - GENITOURINARY/GYNECOLOGICAL Hx Genitourinary Disorders: Yes (UTI) - PSYCHIATRIC Hx Psychophysiologic Disorder: No Hx Substance Use: No - SURGICAL HISTORY Hx Cholecystectomy: Yes (lap rosie done 12/14/15) - ANESTHESIA Hx Anesthesia: Yes Hx Anesthesia Reactions: No Meds Allergies/Adverse Reactions: Allergies Allergy/AdvReac Type Severity Reaction Status Date / Time No Known Allergies Allergy Verified 06/26/18 12:05 Physical Exam - Respiratory Exam Respiratory Exam: NORMAL BREATHING PATTERN - Cardiovascular Exam Cardiovascular Exam: REGULAR RHYTHM - GI/Abdominal Exam GI & Abdominal Exam: Normal Bowel Sounds Results - Vital Signs Recent Vital Signs: Last Vital Signs Temp 98.0 F 06/26/18 19:54 Pulse 83 06/26/18 19:54 Resp 18 06/26/18 19:54 BP 113/58 L 06/26/18 19:54 Pulse Ox 95 06/26/18 19:54 - Labs Result Diagrams: 06/26/18 13:27 06/26/18 13:27 Labs: Laboratory Results - last 24 hr 06/26/18 06/26/18 06/26/18 13:27 13:27 13:27 WBC 61.0 H* RBC 1.87 L Hgb 6.3 L* Hct 20.9 L MCV 111.7 H D MCH 33.6 H MCHC 30.1 L RDW 19.1 H Plt Count 18 L* MPV 8.6 Neut % (Auto) 49.0 L Lymph % (Auto) 8.3 L [place] % (Auto) 42.2 H Eos % (Auto) 0.1 Baso % (Auto) 0.4 Neut # (Auto) 29.8 H Lymph # (Auto) 5.1 H [place] # (Auto) 25.7 H Eos # (Auto) 0.1 Baso # (Auto) 0.3 H Total Counted Cancelled Neutrophils % (Manual) Cancelled Band Neutrophils % Cancelled Lymphocytes % (Manual) Cancelled Reactive Lymphs % Cancelled Monocytes % (Manual) Cancelled Eosinophils % (Manual) Cancelled Basophils % (Manual) Cancelled Metamyelocytes % Cancelled Myelocytes % Cancelled Promyelocytes % Cancelled Blast Cells % Cancelled Plasma Cell % (Manual) Cancelled Nucleated RBC % Cancelled Hypersegmented Polys Cancelled Smudge Cells Cancelled Toxic Granulation Cancelled Dohle Bodies Cancelled Milad Rods Cancelled Platelet Estimate Cancelled Plt Clumps, EDTA Cancelled Large Platelets Cancelled Giant Platelets Cancelled RBC Morphology Cancelled Polychromasia Cancelled Hypochromasia (manual) Cancelled Poikilocytosis (manual Cancelled Basophilic Stippling Cancelled Anisocytosis (manual) Cancelled Microcytosis (manual) Cancelled Macrocytosis (manual) Cancelled Spherocytes Cancelled Sickle Cells Cancelled Target Cells Cancelled Tear Drop Cells Cancelled Ovalocytes Cancelled Stomatocytes Cancelled Helmet Cells Cancelled [place] Bodies Cancelled Theodore Cells Cancelled Acanthocytes (Spur) Cancelled Rouleaux Cancelled Schistocytes Cancelled PT INR APTT Sodium 142 Potassium 5.0 Chloride 111 H Carbon Dioxide 22 Anion Gap 14 BUN 28 H Creatinine 1.1 Est GFR ( Amer) > 60 Est GFR (Non-Af Amer) > 60 Random Glucose 115 H Calcium 8.8 Total Bilirubin 0.5 AST 24 ALT 21 Alkaline Phosphatase 100 Troponin I < 0.0120 Total Protein 7.3 Albumin 4.1 Globulin 3.2 Albumin/Globulin Ratio 1.3 Blood Type A POSITIVE Antibody Screen Negative Crossmatch See Detail BBK History Checked Patient has bt 06/26/18 13:27 WBC RBC Hgb Hct MCV MCH MCHC RDW Plt Count MPV Neut % (Auto) Lymph % (Auto) [place] % (Auto) Eos % (Auto) Baso % (Auto) Neut # (Auto) Lymph # (Auto) [place] # (Auto) Eos # (Auto) Baso # (Auto) Total Counted Neutrophils % (Manual) Band Neutrophils % Lymphocytes % (Manual) Reactive Lymphs % Monocytes % (Manual) Eosinophils % (Manual) Basophils % (Manual) Metamyelocytes % Myelocytes % Promyelocytes % Blast Cells % Plasma Cell % (Manual) Nucleated RBC % Hypersegmented Polys Smudge Cells Toxic Granulation Dohle Bodies Milad Rods Platelet Estimate Plt Clumps, EDTA Large Platelets Giant Platelets RBC Morphology Polychromasia Hypochromasia (manual) Poikilocytosis (manual Basophilic Stippling Anisocytosis (manual) Microcytosis (manual) Macrocytosis (manual) Spherocytes Sickle Cells Target Cells Tear Drop Cells Ovalocytes Stomatocytes Helmet Cells [place] Bodies Theodore Cells Acanthocytes (Spur) Rouleaux Schistocytes PT 14.3 H INR 1.3 APTT 31.4 Sodium Potassium Chloride Carbon Dioxide Anion Gap BUN Creatinine Est GFR ( Amer) Est GFR (Non-Af Amer) Random Glucose Calcium Total Bilirubin AST ALT Alkaline Phosphatase Troponin I Total Protein Albumin Globulin Albumin/Globulin Ratio Blood Type Antibody Screen Crossmatch BBK History Checked Assessment & Plan - Assessment and Plan (Free Text) Assessment: Anemia Leukocytosis thrombocytopenia CML ?? Bx ?? Hematology Transfuse Chest discomfort on exertion 2 to Anemia?? Cardiology - Date & Time Date: 06/26/18 Time: 22:22
[2018-06-27] MEDS: Cholecalciferol 1,000 INTLU TAB PO SCH (09:38)
[2018-06-27] MEDS: Multivitamin With Minerals Tab PO SCH (09:39)
[2018-06-27 10:55] LABS: HEMOGLOBIN 8.2 g/dL (12.0-18.0); MEAN CORPUSCULAR HEMOGLOBIN 32.3 pg (27.0-31.0); MEAN CORPUSCULAR HGB CONC 32.3 g/dL (33.0-37.0); RBC 2.54 Mil/uL (4.40-5.90); RED CELL DISTRIBUTION WIDTH 19.7 % (11.5-14.5)
[2018-06-27 10:59] LABS: WHITE BLOOD COUNT 58.7 K/uL (4.8-10.8)
[2018-06-27 11:05] LABS: ALB/GLOB RATIO 1.3 (1.0-2.1); ALT/SGPT 22 U/L (21-72); AST/SGOT 25 U/L (17-59); BLOOD UREA NITROGEN 24 mg/dl (9-20); CALCIUM 8.5 mg/dL (8.4-10.2); GFR NON-AFRICAN AMERICAN > 60; HDL CHOLESTEROL 28 MG/DL (30-70)
[2018-06-27 11:15] LABS: LDL CHOLESTEROL 52 mg/dL (0-129)
[2018-06-27 11:55] LABS: IRON 169 ug/dL (49-181)
[2018-06-27 12:05] LABS: % IRON SATURATION 68 % (20-55); TOTAL IRON BINDING CAPACITY 250 ug/dL (250-450)
--- NOTE | 2018-06-27 13:04 | CP.PCM.CON ---
History of Present Illness - History of Present Illness History of Present Illness: 87 year old male with a history of HL, HTN, recently diagnosed with a myeloid leukemia, admitted with symptomatic anemia. The patient is well known to me from his prior admission in May. I performed a bone marrow biopsy to evaluate his leukocytosis, anemia, and thrombocytopenia. 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 BCR/ABL was sent Monday. The patient reports to exertional chest pain and found to have a hgb of 6.8. He is s/p 2U PRBC and 1 bag of platelets. He notes to feeling better. Past medical history: HL, HTN Past surgical history: Cholecystectomy, left hip replacement Family history: Father, sister, brother had lung cancer (smokers). Social history: Denies tobacco, drink a glass of wine and scotch, denies illicit drug use. Allergies: NKA Review of systems: All remaining review of systems including HEENT, cardiovascular, respiratory, gastrointestinal, genitourinary, musculoskeletal, dermatologic, neurologic, and psychiatric are negative unless mentioned in the HPI. Past Patient History - Past Medical History & Family History Past Medical History?: Yes - Past Social History Smoking Status: Never Smoked - CARDIAC Hx Hypercholesterolemia: Yes Hx Hypertension: Yes - PULMONARY Hx Respiratory Disorders: No - NEUROLOGICAL Hx Neurological Disorder: No - HEENT Hx HEENT Problems: No - RENAL Hx Chronic Kidney Disease: No - ENDOCRINE/METABOLIC Hx Endocrine Disorders: No - HEMATOLOGICAL/ONCOLOGICAL Hx Human Immunodeficiency Virus (HIV): No - INTEGUMENTARY Hx Dermatological Problems: No - MUSCULOSKELETAL/RHEUMATOLOGICAL Hx Musculoskeletal Disorders: Yes Hx Falls: No Hx Osteoarthritis: Yes - GASTROINTESTINAL Hx Gastrointestinal Disorders: No - GENITOURINARY/GYNECOLOGICAL Hx Genitourinary Disorders: Yes (UTI) - PSYCHIATRIC Hx Psychophysiologic Disorder: No Hx Substance Use: No - SURGICAL HISTORY Hx Cholecystectomy: Yes (lap rosie done 12/14/15) - ANESTHESIA Hx Anesthesia: Yes Hx Anesthesia Reactions: No Meds Allergies/Adverse Reactions: Allergies Allergy/AdvReac Type Severity Reaction Status Date / Time No Known Allergies Allergy Verified 06/26/18 12:05 - Medications Medications: Current Medications Atorvastatin Calcium (Lipitor) 10 mg PO DAILY [facility] Last Admin: 06/27/18 09:39 Dose: 10 mg Cholecalciferol (Vitamin D) 1,000 intlu PO DAILY [facility] Last Admin: 06/27/18 09:38 Dose: 1,000 intlu Hydroxyurea (Hydrea) 500 mg PO DAILY [facility] Lisinopril (Zestril) 5 mg PO DAILY [facility] Last Admin: 06/27/18 09:38 Dose: 5 mg Multivitamins/Minerals (Therapeutic-M Tab) 1 tab PO DAILY [facility] Last Admin: 06/27/18 09:39 Dose: 1 tab Tamsulosin HCl (Flomax) 0.4 mg PO DAILY [facility] Last Admin: 06/27/18 09:39 Dose: 0.4 mg Physical Exam - Head Exam Head Exam: ATRAUMATIC - Eye Exam Eye Exam: Normal appearance - ENT Exam ENT Exam: Mucous Membranes Dry - Respiratory Exam Respiratory Exam: NORMAL BREATHING PATTERN - Cardiovascular Exam Cardiovascular Exam: +S1, +S2 - GI/Abdominal Exam GI & Abdominal Exam: Normal Bowel Sounds - Extremities Exam Extremities exam: Positive for: normal inspection - Neurological Exam Neurological exam: Oriented x3 - Psychiatric Exam Psychiatric exam: Normal Affect, Normal Mood - Skin Skin Exam: Warm Results - Vital Signs Recent Vital Signs: Last Vital Signs Temp 97.7 F 06/27/18 12:00 Pulse 76 06/27/18 12:00 Resp 18 06/27/18 12:00 BP 121/57 L 06/27/18 12:00 Pulse Ox 94 L 06/27/18 12:00 - Labs Result Diagrams: 06/27/18 10:30 06/27/18 10:30 Labs: Laboratory Results - last 24 hr 06/26/18 06/26/18 06/26/18 13:27 13:27 13:27 WBC 61.0 H* RBC 1.87 L Hgb 6.3 L* Hct 20.9 L MCV 111.7 H D MCH 33.6 H MCHC 30.1 L RDW 19.1 H Plt Count 18 L* MPV 8.6 Neut % (Auto) 49.0 L Lymph % (Auto) 8.3 L [place] % (Auto) 42.2 H Eos % (Auto) 0.1 Baso % (Auto) 0.4 Neut # (Auto) 29.8 H Lymph # (Auto) 5.1 H [place] # (Auto) 25.7 H Eos # (Auto) 0.1 Baso # (Auto) 0.3 H Total Counted Cancelled Neutrophils % (Manual) Cancelled Band Neutrophils % Cancelled Lymphocytes % (Manual) Cancelled Reactive Lymphs % Cancelled Monocytes % (Manual) Cancelled Eosinophils % (Manual) Cancelled Basophils % (Manual) Cancelled Metamyelocytes % Cancelled Myelocytes % Cancelled Promyelocytes % Cancelled Blast Cells % Cancelled Plasma Cell % (Manual) Cancelled Nucleated RBC % Cancelled Hypersegmented Polys Cancelled Smudge Cells Cancelled Toxic Granulation Cancelled Dohle Bodies Cancelled Milad Rods Cancelled Platelet Estimate Cancelled Plt Clumps, EDTA Cancelled Large Platelets Cancelled Giant Platelets Cancelled RBC Morphology Cancelled Polychromasia Cancelled Hypochromasia (manual) Cancelled Poikilocytosis (manual Cancelled Basophilic Stippling Cancelled Anisocytosis (manual) Cancelled Microcytosis (manual) Cancelled Macrocytosis (manual) Cancelled Spherocytes Cancelled Sickle Cells Cancelled Target Cells Cancelled Tear Drop Cells Cancelled Ovalocytes Cancelled Stomatocytes Cancelled Helmet Cells Cancelled Thomas-Makanda Bodies Cancelled [place] Cells Cancelled Acanthocytes (Spur) Cancelled Rouleaux Cancelled Schistocytes Cancelled PT INR APTT Sodium 142 Potassium 5.0 Chloride 111 H Carbon Dioxide 22 Anion Gap 14 BUN 28 H Creatinine 1.1 Est GFR ( Amer) > 60 Est GFR (Non-Af Amer) > 60 Random Glucose 115 H Calcium 8.8 Phosphorus Magnesium Iron TIBC % Saturation Total Bilirubin 0.5 AST 24 ALT 21 Alkaline Phosphatase 100 Troponin I < 0.0120 Total Protein 7.3 Albumin 4.1 Globulin 3.2 Albumin/Globulin Ratio 1.3 Triglycerides Cholesterol LDL Cholesterol Direct HDL Cholesterol TSH 3rd Generation Blood Type A POSITIVE Antibody Screen Negative Crossmatch See Detail BBK History Checked Patient has bt 06/26/18 06/27/18 06/27/18 13:27 10:30 10:30 WBC 58.7 H* RBC 2.54 L Hgb 8.2 L Hct 25.4 L MCV 100.0 H D MCH 32.3 H MCHC 32.3 L RDW 19.7 H Plt Count 41 L D MPV Neut % (Auto) Lymph % (Auto) [place] % (Auto) Eos % (Auto) Baso % (Auto) Neut # (Auto) Lymph # (Auto) [place] # (Auto) Eos # (Auto) Baso # (Auto) Total Counted Neutrophils % (Manual) Band Neutrophils % Lymphocytes % (Manual) Reactive Lymphs % Monocytes % (Manual) Eosinophils % (Manual) Basophils % (Manual) Metamyelocytes % Myelocytes % Promyelocytes % Blast Cells % Plasma Cell % (Manual) Nucleated RBC % Hypersegmented Polys Smudge Cells Toxic Granulation Dohle Bodies Milad Rods Platelet Estimate Plt Clumps, EDTA Large Platelets Giant Platelets RBC Morphology Polychromasia Hypochromasia (manual) Poikilocytosis (manual Basophilic Stippling Anisocytosis (manual) Microcytosis (manual) Macrocytosis (manual) Spherocytes Sickle Cells Target Cells Tear Drop Cells Ovalocytes Stomatocytes Helmet Cells Thomas-Makanda Bodies Theodore Cells Acanthocytes (Spur) Rouleaux Schistocytes PT 14.3 H INR 1.3 APTT 31.4 Sodium Potassium Chloride Carbon Dioxide Anion Gap BUN Creatinine Est GFR ( Amer) Est GFR (Non-Af Amer) Random Glucose Calcium Phosphorus Magnesium Iron TIBC % Saturation Total Bilirubin AST ALT Alkaline Phosphatase Troponin I < 0.0120 Total Protein Albumin Globulin Albumin/Globulin Ratio Triglycerides Cholesterol LDL Cholesterol Direct HDL Cholesterol TSH 3rd Generation Blood Type Antibody Screen Crossmatch BBK History Checked 06/27/18 06/27/18 10:30 10:30 WBC RBC Hgb Hct MCV MCH MCHC RDW Plt Count MPV Neut % (Auto) Lymph % (Auto) [place] % (Auto) Eos % (Auto) Baso % (Auto) Neut # (Auto) Lymph # (Auto) [place] # (Auto) Eos # (Auto) Baso # (Auto) Total Counted Neutrophils % (Manual) Band Neutrophils % Lymphocytes % (Manual) Reactive Lymphs % Monocytes % (Manual) Eosinophils % (Manual) Basophils % (Manual) Metamyelocytes % Myelocytes % Promyelocytes % Blast Cells % Plasma Cell % (Manual) Nucleated RBC % Hypersegmented Polys Smudge Cells Toxic Granulation Dohle Bodies Milad Rods Platelet Estimate Plt Clumps, EDTA Large Platelets Giant Platelets RBC Morphology Polychromasia Hypochromasia (manual) Poikilocytosis (manual Basophilic Stippling Anisocytosis (manual) Microcytosis (manual) Macrocytosis (manual) Spherocytes Sickle Cells Target Cells Tear Drop Cells Ovalocytes Stomatocytes Helmet Cells Thomas-Makanda Bodies Theodore Cells Acanthocytes (Spur) Rouleaux Schistocytes PT INR APTT Sodium 141 Potassium 4.2 Chloride 108 H Carbon Dioxide 23 Anion Gap 14 BUN 24 H Creatinine 1.1 Est GFR ( Amer) > 60 Est GFR (Non-Af Amer) > 60 Random Glucose 196 H Calcium 8.5 Phosphorus 3.5 Magnesium 2.1 Iron 169 TIBC 250 % Saturation 68 H Total Bilirubin 0.7 AST 25 ALT 22 Alkaline Phosphatase 87 Troponin I Total Protein 7.1 Albumin 4.0 Globulin 3.1 Albumin/Globulin Ratio 1.3 Triglycerides 173 H D Cholesterol 115 LDL Cholesterol Direct 52 HDL Cholesterol 28 L TSH 3rd Generation 2.12 Blood Type Antibody Screen Crossmatch BBK History Checked Assessment & Plan (1) Myeloid leukemia Assessment and Plan: 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 bone marrow transplant evaluation based on above Thank you for this interesting consult. Status: Acute
[2018-06-27 14:17] LABS: T3 0.784 nmol/L (1.49-2.60)
--- NOTE | 2018-06-27 19:10 | CP.PCM.PN ---
Subjective - Date & Time of Evaluation Date of Evaluation: 06/27/18 Time of Evaluation: 22:22 - Subjective Subjective: Labs improved Extensive discussion with PT Objective - Vital Signs/Intake and Output Vital Signs (last 24 hours): Temp Pulse Resp BP Pulse Ox 98.9 F 75 20 116/63 94 L 06/27/18 15:39 06/27/18 15:39 06/27/18 15:39 06/27/18 15:39 06/27/18 15:39 Intake and Output: 06/27/18 06/28/18 18:59 06:59 Intake Total 303 Balance 303 - Medications Medications: Current Medications Atorvastatin Calcium (Lipitor) 10 mg PO DAILY [facility] Last Admin: 06/27/18 09:39 Dose: 10 mg Cholecalciferol (Vitamin D) 1,000 intlu PO DAILY [facility] Last Admin: 06/27/18 09:38 Dose: 1,000 intlu Hydroxyurea (Hydrea) 500 mg PO DAILY [facility] Last Admin: 06/27/18 14:27 Dose: 500 mg Lisinopril (Zestril) 5 mg PO DAILY [facility] Last Admin: 06/27/18 09:38 Dose: 5 mg Multivitamins/Minerals (Therapeutic-M Tab) 1 tab PO DAILY [facility] Last Admin: 06/27/18 09:39 Dose: 1 tab Tamsulosin HCl (Flomax) 0.4 mg PO DAILY [facility] Last Admin: 06/27/18 09:39 Dose: 0.4 mg - Labs Labs: 06/27/18 10:30 06/27/18 10:30 PT 14.3 Seconds (9.8-13.1) H 06/26/18 13:27 INR 1.3 06/26/18 13:27 APTT 31.4 Seconds (25.6-37.1) 06/26/18 13:27 - Respiratory Exam Respiratory Exam: NORMAL BREATHING PATTERN - Cardiovascular Exam Cardiovascular Exam: REGULAR RHYTHM - GI/Abdominal Exam GI & Abdominal Exam: Normal Bowel Sounds Assessment and Plan - Assessment and Plan (Free Text) Assessment: Anemia Leukocytosis thrombocytopenia CML ?? Bx ?? Hematology Transfused Chest discomfort on exertion 2 to Anemia?? Cardiology
[2018-06-28 05:56] LABS: BASO # 0.2 K/uL (0.0-0.2); BASO % 0.5 % (0.0-2.0); EOS # 0.2 K/uL (0.0-0.7); EOS % 0.3 % (0.0-4.0); HEMOGLOBIN 7.4 g/dL (12.0-18.0); LYMPH # 5.2 K/uL (1.0-4.3); LYMPH % 10.3 % (20.0-40.0); MEAN CELL VOLUME 100.1 fl (80.0-94.0); MEAN CORPUSCULAR HEMOGLOBIN 32.9 pg (27.0-31.0); MEAN CORPUSCULAR HGB CONC 32.9 g/dL (33.0-37.0); MEAN PLATELET VOLUME 8.1 fl (7.2-11.7); MONO # 22.7 K/uL (0.0-0.8); MONO % 44.3 % (0.0-10.0); NEUT # 22.8 K/uL (1.8-7.0); NEUT % 44.6 % (50.0-75.0); NRBC % 0.2 % (0.0-0.0); PLATELET COUNT 36 K/uL (130-400); RBC 2.24 Mil/uL (4.40-5.90); RED CELL DISTRIBUTION WIDTH 19.2 % (11.5-14.5)
[2018-06-28 06:12] LABS: BLOOD UREA NITROGEN 27 mg/dl (9-20); CALCIUM 8.2 mg/dL (8.4-10.2); GFR NON-AFRICAN AMERICAN > 60
[2018-06-28 06:45] LABS: WHITE BLOOD COUNT 51.1 K/uL (4.8-10.8)
[2018-06-28] MEDS: Multivitamin With Minerals Tab PO SCH (09:16)
[2018-06-28] MEDS: Cholecalciferol 1,000 INTLU TAB PO SCH (09:16)
[2018-06-28 09:26] LABS: BLASTS 4 % (0-0); LYMPHOCYTE 9 % (20-50); METAMYELOCYTE 3 % (0-0); MONOCYTE 25 % (0-10); NEUTROPHIL 58 % (42-75); PLATELET ESTIMATE DECREASED (NORMAL); REACTIVE LYMPHOCYTES 1 % (0-0); TOTAL CELLS COUNTED 100
[2018-06-28 09:33] LABS: ANISOCYTOSIS SLIGHT; HYPOCHROMIC MODERATE; OVALOCYTES SLIGHT; SCHISTOCYTES SLIGHT
[2018-06-28] MEDS ORDERED: Oxymetazoline 0.05% SPRAY NAS SCH (11:45)
[2018-06-28] MEDS ORDERED: Absorbable Gelatin Sponge Size 12-7 TP ONE (11:45)
[2018-06-28] MEDS ORDERED: Cellulose Hemostat 2X3 Sheet TP ONE (11:48)
[2018-06-28] MEDS ORDERED: Epoetin Alfa 20000 UNIT/ML (RENAL DOSE) SC ONE (13:03)
--- NOTE | 2018-06-28 13:07 | CP.PCM.CON ---
History of Present Illness - History of Present Illness History of Present Illness: 87 yo male admitted with chest pain in setting of anemia and thromobcytopenia. Troponin and EKG with no clinical evidence of ischemia. Past Patient History - Past Medical History & Family History Past Medical History?: Yes - Past Social History Smoking Status: Never Smoked - CARDIAC Hx Hypercholesterolemia: Yes Hx Hypertension: Yes - PULMONARY Hx Respiratory Disorders: No - NEUROLOGICAL Hx Neurological Disorder: No - HEENT Hx HEENT Problems: No - RENAL Hx Chronic Kidney Disease: No - ENDOCRINE/METABOLIC Hx Endocrine Disorders: No - HEMATOLOGICAL/ONCOLOGICAL Hx Human Immunodeficiency Virus (HIV): No - INTEGUMENTARY Hx Dermatological Problems: No - MUSCULOSKELETAL/RHEUMATOLOGICAL Hx Musculoskeletal Disorders: Yes Hx Falls: No Hx Osteoarthritis: Yes - GASTROINTESTINAL Hx Gastrointestinal Disorders: No - GENITOURINARY/GYNECOLOGICAL Hx Genitourinary Disorders: Yes (UTI) - PSYCHIATRIC Hx Psychophysiologic Disorder: No Hx Substance Use: No - SURGICAL HISTORY Hx Cholecystectomy: Yes (lap rosie done 12/14/15) - ANESTHESIA Hx Anesthesia: Yes Hx Anesthesia Reactions: No Meds Allergies/Adverse Reactions: Allergies Allergy/AdvReac Type Severity Reaction Status Date / Time No Known Allergies Allergy Verified 06/26/18 12:05 - Medications Medications: Current Medications Atorvastatin Calcium (Lipitor) 10 mg PO DAILY [facility] Last Admin: 06/28/18 09:16 Dose: 10 mg Cholecalciferol (Vitamin D) 1,000 intlu PO DAILY [facility] Last Admin: 06/28/18 09:16 Dose: 1,000 intlu Epoetin Erich (Procrit) 20,000 unit SC ONCE ONE Stop: 06/28/18 13:04 Hydroxyurea (Hydrea) 500 mg PO DAILY [facility] Last Admin: 06/28/18 09:15 Dose: 500 mg Lisinopril (Zestril) 5 mg PO DAILY [facility] Last Admin: 06/28/18 09:17 Dose: 5 mg Multivitamins/Minerals (Therapeutic-M Tab) 1 tab PO DAILY [facility] Last Admin: 06/28/18 09:16 Dose: 1 tab Tamsulosin HCl (Flomax) 0.4 mg PO DAILY [facility] Last Admin: 06/28/18 09:15 Dose: 0.4 mg Physical Exam - Neck Exam Neck exam: Positive for: Normal Inspection - Respiratory Exam Respiratory Exam: Clear to Auscultation Bilateral - Cardiovascular Exam Cardiovascular Exam: REGULAR RHYTHM - GI/Abdominal Exam GI & Abdominal Exam: Normal Bowel Sounds - Extremities Exam Extremities exam: Positive for: normal inspection Results - Vital Signs Recent Vital Signs: Last Vital Signs Temp 99.1 F 06/28/18 11:46 Pulse 79 06/28/18 11:46 Resp 18 06/28/18 11:46 BP 115/54 L 06/28/18 11:46 Pulse Ox 96 06/28/18 11:46 - Labs Result Diagrams: 06/28/18 04:40 06/28/18 04:40 Labs: Laboratory Results - last 24 hr 06/27/18 06/28/18 06/28/18 10:30 04:40 04:40 WBC 51.1 H* RBC 2.24 L Hgb 7.4 L Hct 22.4 L MCV 100.1 H MCH 32.9 H MCHC 32.9 L RDW 19.2 H Plt Count 36 L MPV 8.1 Neut % (Auto) 44.6 L Lymph % (Auto) 10.3 L Linn % (Auto) 44.3 H Eos % (Auto) 0.3 Baso % (Auto) 0.5 Neut # (Auto) 22.8 H Lymph # (Auto) 5.2 H Linn # (Auto) 22.7 H Eos # (Auto) 0.2 Baso # (Auto) 0.2 Neutrophils % (Manual) 58 Lymphocytes % (Manual) 9 L Reactive Lymphs % 1 H Monocytes % (Manual) 25 H Metamyelocytes % 3 H Blast Cells % 4 H Platelet Estimate Decreased L Hypochromasia (manual) Moderate Anisocytosis (manual) Slight Macrocytosis (manual) Slight Ovalocytes Slight Schistocytes Slight Sodium 138 Potassium 4.3 Chloride 108 H Carbon Dioxide 22 Anion Gap 12 BUN 27 H Creatinine 1.1 Est GFR ( Amer) > 60 Est GFR (Non-Af Amer) > 60 Random Glucose 104 Calcium 8.2 L Vitamin B12 846 Total T3 0.784 L Blood Type Antibody Screen Crossmatch BBK History Checked 06/28/18 10:00 WBC RBC Hgb Hct MCV MCH MCHC RDW Plt Count MPV Neut % (Auto) Lymph % (Auto) Linn % (Auto) Eos % (Auto) Baso % (Auto) Neut # (Auto) Lymph # (Auto) Linn # (Auto) Eos # (Auto) Baso # (Auto) Neutrophils % (Manual) Lymphocytes % (Manual) Reactive Lymphs % Monocytes % (Manual) Metamyelocytes % Blast Cells % Platelet Estimate Hypochromasia (manual) Anisocytosis (manual) Macrocytosis (manual) Ovalocytes Schistocytes Sodium Potassium Chloride Carbon Dioxide Anion Gap BUN Creatinine Est GFR ( Amer) Est GFR (Non-Af Amer) Random Glucose Calcium Vitamin B12 Total T3 Blood Type A POSITIVE Antibody Screen Negative Crossmatch See Detail BBK History Checked Patient has bt Assessment & Plan - Assessment and Plan (Free Text) Assessment: Chest pain secondary to anemia. Correction of hematologic parameters should resolve chest pain.
--- NOTE | 2018-06-28 13:15 | CP.PCM.PN ---
Subjective - Date & Time of Evaluation Date of Evaluation: 06/28/18 Time of Evaluation: 12:00 - Subjective Subjective: Having bloody nose. For ENT evaluation 2U PRBC and 1 bag platelets today. I called hematopathology on BCR/ABL FISH esults; may not be available until next week. Objective - Vital Signs/Intake and Output Vital Signs (last 24 hours): Temp Pulse Resp BP Pulse Ox 99.1 F 79 18 115/54 L 96 06/28/18 11:46 06/28/18 11:46 06/28/18 11:46 06/28/18 11:46 06/28/18 11:46 - Medications Medications: Current Medications Atorvastatin Calcium (Lipitor) 10 mg PO DAILY [facility] Last Admin: 06/28/18 09:16 Dose: 10 mg Cholecalciferol (Vitamin D) 1,000 intlu PO DAILY [facility] Last Admin: 06/28/18 09:16 Dose: 1,000 intlu Epoetin Erich (Procrit) 20,000 unit SC ONCE ONE Stop: 06/28/18 13:04 Hydroxyurea (Hydrea) 500 mg PO DAILY [facility] Last Admin: 06/28/18 09:15 Dose: 500 mg Lisinopril (Zestril) 5 mg PO DAILY [facility] Last Admin: 06/28/18 09:17 Dose: 5 mg Multivitamins/Minerals (Therapeutic-M Tab) 1 tab PO DAILY [facility] Last Admin: 06/28/18 09:16 Dose: 1 tab Tamsulosin HCl (Flomax) 0.4 mg PO DAILY [facility] Last Admin: 06/28/18 09:15 Dose: 0.4 mg - Labs Labs: 06/28/18 04:40 06/28/18 04:40 PT 14.3 Seconds (9.8-13.1) H 06/26/18 13:27 INR 1.3 06/26/18 13:27 APTT 31.4 Seconds (25.6-37.1) 06/26/18 13:27 - Head Exam Head Exam: ATRAUMATIC - Eye Exam Eye Exam: Normal appearance - ENT Exam ENT Exam: Mucous Membranes Dry - Respiratory Exam Respiratory Exam: NORMAL BREATHING PATTERN - Cardiovascular Exam Cardiovascular Exam: +S1, +S2 - GI/Abdominal Exam GI & Abdominal Exam: Normal Bowel Sounds Assessment and Plan (1) Myeloid leukemia Assessment & Plan: transfusion support PRN started on hydroxyurea will give a dose of Procrit ENT evaluation for epistaxis outaptient f/u of BCR/ABL FISH Status: Acute
--- NOTE | 2018-06-28 13:52 | CP.PCM.PN ---
Subjective - Date & Time of Evaluation Date of Evaluation: 06/28/18 Time of Evaluation: 11:30 - Subjective Subjective: see below Objective - Vital Signs/Intake and Output Vital Signs (last 24 hours): Temp Pulse Resp BP Pulse Ox 98.7 F 87 20 133/66 96 06/28/18 13:40 06/28/18 13:40 06/28/18 13:40 06/28/18 13:40 06/28/18 11:46 Intake and Output: 06/28/18 06/28/18 06:59 18:59 Intake Total 0 Balance 0 - Medications Medications: Current Medications Atorvastatin Calcium (Lipitor) 10 mg PO DAILY [facility] Last Admin: 06/28/18 09:16 Dose: 10 mg Cholecalciferol (Vitamin D) 1,000 intlu PO DAILY [facility] Last Admin: 06/28/18 09:16 Dose: 1,000 intlu Hydroxyurea (Hydrea) 500 mg PO DAILY [facility] Last Admin: 06/28/18 09:15 Dose: 500 mg Lisinopril (Zestril) 5 mg PO DAILY [facility] Last Admin: 06/28/18 09:17 Dose: 5 mg Multivitamins/Minerals (Therapeutic-M Tab) 1 tab PO DAILY [facility] Last Admin: 06/28/18 09:16 Dose: 1 tab Tamsulosin HCl (Flomax) 0.4 mg PO DAILY [facility] Last Admin: 06/28/18 09:15 Dose: 0.4 mg - Labs Labs: 06/28/18 04:40 06/28/18 04:40 PT 14.3 Seconds (9.8-13.1) H 06/26/18 13:27 INR 1.3 06/26/18 13:27 APTT 31.4 Seconds (25.6-37.1) 06/26/18 13:27 Assessment and Plan - Assessment and Plan (Free Text) Assessment: ENT CONSULT NOTE chief complaint nose bleed HPI 87 y/o male with recurrent right nose bleeding for the past month. he was admitted this week with anemia and thrombocytopenia. this morning he had right nosebleed that has stopped with manual pressure. i was asked to see this patient. Past Medical Hx HTN Allergies NKDA ROS see HPI Exam awake, alert, comfortable neck soft, trachea midline oc/op clear, no blood in oropharynx nose: superficial vessels anterior right septum that look like the recent source of bleeding. nasal endoscopy normal otherwise. face symmetric, no sinus tenderness I placed a small piece of gelfoam absorbable packing in the anterior nasal cavity b/w the septum and inferior turbinate so as to contact the superficial vessels. this will either dissolve or more likely come out anteriorly with the nasal mucus in a few days. this was all explained to the patient. Impression anterior epistaxis secondary to thrombocytopenia Recommend HOB elevation epistaxis precautions d/w patient pt to get platelet txf heme/onc to see pt call if bleeds
--- NOTE | 2018-06-28 20:47 | CP.PCM.PN ---
Subjective - Date & Time of Evaluation Date of Evaluation: 06/28/18 Time of Evaluation: 22:22 - Subjective Subjective: Hbg 7.4 plat 36 Transfused Epistaxis Objective - Vital Signs/Intake and Output Vital Signs (last 24 hours): Temp Pulse Resp BP Pulse Ox 98.9 F 79 16 122/64 95 06/28/18 19:44 06/28/18 19:44 06/28/18 19:44 06/28/18 19:44 06/28/18 19:44 Intake and Output: 06/28/18 06/29/18 18:59 06:59 Intake Total 276 Balance 276 - Medications Medications: Current Medications Atorvastatin Calcium (Lipitor) 10 mg PO DAILY [facility] Last Admin: 06/28/18 09:16 Dose: 10 mg Cholecalciferol (Vitamin D) 1,000 intlu PO DAILY [facility] Last Admin: 06/28/18 09:16 Dose: 1,000 intlu Hydroxyurea (Hydrea) 500 mg PO DAILY [facility] Last Admin: 06/28/18 09:15 Dose: 500 mg Lisinopril (Zestril) 5 mg PO DAILY [facility] Last Admin: 06/28/18 09:17 Dose: 5 mg Multivitamins/Minerals (Therapeutic-M Tab) 1 tab PO DAILY [facility] Last Admin: 06/28/18 09:16 Dose: 1 tab Tamsulosin HCl (Flomax) 0.4 mg PO DAILY [facility] Last Admin: 06/28/18 09:15 Dose: 0.4 mg - Labs Labs: 06/28/18 04:40 06/28/18 04:40 PT 14.3 Seconds (9.8-13.1) H 06/26/18 13:27 INR 1.3 06/26/18 13:27 APTT 31.4 Seconds (25.6-37.1) 06/26/18 13:27 - Respiratory Exam Respiratory Exam: NORMAL BREATHING PATTERN - Cardiovascular Exam Cardiovascular Exam: REGULAR RHYTHM - GI/Abdominal Exam GI & Abdominal Exam: Normal Bowel Sounds Assessment and Plan - Assessment and Plan (Free Text) Assessment: Anemia Leukocytosis thrombocytopenia CML ?? Bx ?? results still pending Hematology Transfused Epistaxis ENT Chest discomfort on exertion 2 to Anemia?? Cardiology
[2018-06-28 21:18] LABS: SQUAMOUS EPITHIAL < 1 /hpf (0-5); URINE BILIRUBIN NEGATIVE (NEGATIVE); URINE BLOOD TRACE (NEGATIVE); URINE CLARITY CLOUDY (Clear); URINE COLOR YELLOW (YELLOW); URINE GLUCOSE (UA) NEG (NEGATIVE); URINE LEUKOCYTE ESTERASE NEG Leu/uL (Negative); URINE PROTEIN 30 mg/dL (NEGATIVE); URINE UROBILINOGEN 0.2-1.0 mg/dL (0.2-1.0)
--- NOTE | 2018-06-29 08:21 | CP.PCM.CON ---
History of Present Illness - History of Present Illness History of Present Illness: Pt is an 87 year old male admitted to [facility] and referred to the va underwriter for evaluation and supportive therapy. Pt spoke of his "Bloodwork being all over the place" and admission into [place] and diagnosis of Leukemia. See medical record for complete medical history/medication list. Social History: Pt lives alone. He has had the same girlfriend for 15 years. Pt was previously and then . He has three children and five grandchildren all in [place]. Pt reported very positive relationships with his girlfriend and children. He spoke of disclosing medical information to his children when greater clarify/information is evident. Ed/Voc: pt born/raised in [place], graduated HS. Pt had his own buisness. Psych history denied, pt denied a history of alc.sub abuse. Pt spoke on interview of his current medical issues, commitment to living and enjoying. Cognitive strategies reviewed to reduce distress. MSE: pt alert, oriented x3, relevant/coherent, no psychosis, affect constricted, mood dysphoric, no si no hi ideation, no psychosis, Dx: Adjustment dx with depression Plan: Continued Sup therapy (Patient provided with va underwriter's contact information to continue services on discharge- though it is unlikely patient will comply). Thank you, Dr. Yoder Past Patient History - Past Medical History & Family History Past Medical History?: Yes - Past Social History Smoking Status: Never Smoked - CARDIAC Hx Hypercholesterolemia: Yes Hx Hypertension: Yes - PULMONARY Hx Respiratory Disorders: No - NEUROLOGICAL Hx Neurological Disorder: No - HEENT Hx HEENT Problems: No - RENAL Hx Chronic Kidney Disease: No - ENDOCRINE/METABOLIC Hx Endocrine Disorders: No - HEMATOLOGICAL/ONCOLOGICAL Hx Human Immunodeficiency Virus (HIV): No - INTEGUMENTARY Hx Dermatological Problems: No - MUSCULOSKELETAL/RHEUMATOLOGICAL Hx Musculoskeletal Disorders: Yes Hx Falls: No Hx Osteoarthritis: Yes - GASTROINTESTINAL Hx Gastrointestinal Disorders: No - GENITOURINARY/GYNECOLOGICAL Hx Genitourinary Disorders: Yes (UTI) - PSYCHIATRIC Hx Psychophysiologic Disorder: No Hx Substance Use: No - SURGICAL HISTORY Hx Cholecystectomy: Yes (lap rosie done 12/14/15) - ANESTHESIA Hx Anesthesia: Yes Hx Anesthesia Reactions: No Meds Allergies/Adverse Reactions: Allergies Allergy/AdvReac Type Severity Reaction Status Date / Time No Known Allergies Allergy Verified 06/26/18 12:05 - Medications Medications: Current Medications Atorvastatin Calcium (Lipitor) 10 mg PO DAILY [facility] Last Admin: 06/28/18 09:16 Dose: 10 mg Cholecalciferol (Vitamin D) 1,000 intlu PO DAILY [facility] Last Admin: 06/28/18 09:16 Dose: 1,000 intlu Hydroxyurea (Hydrea) 500 mg PO DAILY [facility] Last Admin: 06/28/18 09:15 Dose: 500 mg Lisinopril (Zestril) 5 mg PO DAILY [facility] Last Admin: 06/28/18 09:17 Dose: 5 mg Multivitamins/Minerals (Therapeutic-M Tab) 1 tab PO DAILY [facility] Last Admin: 06/28/18 09:16 Dose: 1 tab Tamsulosin HCl (Flomax) 0.4 mg PO DAILY [facility] Last Admin: 06/28/18 09:15 Dose: 0.4 mg Results - Vital Signs Recent Vital Signs: Last Vital Signs Temp 98.9 F 06/29/18 05:00 Pulse 89 06/29/18 05:00 Resp 20 06/29/18 05:00 BP 135/63 06/29/18 05:00 Pulse Ox 95 06/29/18 05:00 - Labs Result Diagrams: 06/28/18 04:40 06/28/18 04:40 Labs: Laboratory Results - last 24 hr 06/28/18 06/28/18 06/28/18 04:40 10:00 16:35 Neutrophils % (Manual) 58 Lymphocytes % (Manual) 9 L Reactive Lymphs % 1 H Monocytes % (Manual) 25 H Metamyelocytes % 3 H Blast Cells % 4 H Platelet Estimate Decreased L Hypochromasia (manual) Moderate Anisocytosis (manual) Slight Macrocytosis (manual) Slight Ovalocytes Slight Schistocytes Slight Urine Color Urine Clarity Urine pH Ur Specific Palmer Urine Protein Urine Glucose (UA) Urine Ketones Urine Blood Urine Nitrate Urine Bilirubin Urine Urobilinogen Ur Leukocyte Esterase Urine RBC (Auto) Urine Microscopic WBC Ur Squamous Epith Cells Blood Type A POSITIVE Antibody Screen Negative Crossmatch See Detail Reaction Clerical Check No discrepancy Pre-Trans Blood Type A POSITIVE Pre-Trans Bld Appearanc No hemolysis Pre-Trans TEDDY Negative Post-Trans Blood Type A POSITIVE Post-Trans Spec Appear No hemolysis Post-Trans TEDDY Negative BBK History Checked Patient has bt 06/28/18 20:51 Neutrophils % (Manual) Lymphocytes % (Manual) Reactive Lymphs % Monocytes % (Manual) Metamyelocytes % Blast Cells % Platelet Estimate Hypochromasia (manual) Anisocytosis (manual) Macrocytosis (manual) Ovalocytes Schistocytes Urine Color Yellow Urine Clarity Cloudy Urine pH 5.0 Ur Specific Palmer 1.018 Urine Protein 30 Urine Glucose (UA) Neg Urine Ketones Negative Urine Blood Trace Urine Nitrate Negative Urine Bilirubin Negative Urine Urobilinogen 0.2-1.0 Ur Leukocyte Esterase Neg Urine RBC (Auto) 4 H Urine Microscopic WBC 2 Ur Squamous Epith Cells < 1 Blood Type Antibody Screen Crossmatch Reaction Clerical Check Pre-Trans Blood Type Pre-Trans Bld Appearanc Pre-Trans TEDDY Post-Trans Blood Type Post-Trans Spec Appear Post-Trans TEDDY BBK History Checked
[2018-06-29 08:22] VITALS: RESP 18
[2018-06-29 09:04] LABS: BASO # 0.2 K/uL (0.0-0.2); BASO % 0.3 % (0.0-2.0); EOS # 0.2 K/uL (0.0-0.7); EOS % 0.3 % (0.0-4.0); HEMOGLOBIN 9.1 g/dL (12.0-18.0); LYMPH # 5.4 K/uL (1.0-4.3); LYMPH % 7.8 % (20.0-40.0); MEAN CELL VOLUME 97.2 fl (80.0-94.0); MEAN CORPUSCULAR HEMOGLOBIN 31.6 pg (27.0-31.0); MEAN CORPUSCULAR HGB CONC 32.5 g/dL (33.0-37.0); MEAN PLATELET VOLUME 8.1 fl (7.2-11.7); MONO # 36.1 K/uL (0.0-0.8); MONO % 52.1 % (0.0-10.0); NEUT # 27.3 K/uL (1.8-7.0); NEUT % 39.5 % (50.0-75.0); PLATELET COUNT 51 K/uL (130-400); RBC 2.87 Mil/uL (4.40-5.90)
[2018-06-29 09:16] LABS: WHITE BLOOD COUNT 69.1 K/uL (4.8-10.8)
[2018-06-29 09:36] LABS: BLOOD UREA NITROGEN 28 mg/dl (9-20); CALCIUM 8.8 mg/dL (8.4-10.2); GFR NON-AFRICAN AMERICAN 52
[2018-06-29 10:09] LABS: BANDS 8 % (0-2); BLASTS 2 % (0-0); LYMPHOCYTE 13 % (20-50); METAMYELOCYTE 4 % (0-0); MONOCYTE 32 % (0-10); MYELOCYTE 2 % (0-0); NEUTROPHIL 38 % (42-75); REACTIVE LYMPHOCYTES 1 % (0-0); TOTAL CELLS COUNTED 100
[2018-06-29 10:11] LABS: ANISOCYTOSIS SLIGHT; OVALOCYTES SLIGHT; PLATELET ESTIMATE DECREASED (NORMAL); POIKILOCYTOSIS SLIGHT; SMUDGE CELLS PRESENT; SPHEROCYTES SLIGHT
[2018-06-29 10:12] LABS: LARGE PLATELETS PRESENT
[2018-06-29] MEDS: Cholecalciferol 1,000 INTLU TAB PO SCH (10:47)
[2018-06-29 11:07] VITALS: PULSE 82
[2018-06-29 12:12] VITALS: BP 115/56; TEMP 101.4; O2SAT 94
[2018-06-29] MEDS: Multivitamin With Minerals Tab PO SCH (12:35)
--- NOTE | 2018-06-29 14:53 | RAD ---
Date of service: 06/29/2018 HISTORY: fever COMPARISON: Portable chest 06/26/2018. TECHNIQUE: Chest PA and lateral views FINDINGS: LUNGS: No infiltrate bilaterally. Trace linear atelectasis inferior right lung zone. PLEURA: Trace left pleural effusion with none on the right. No pneumothorax bilaterally. CARDIOVASCULAR: Calcific atherosclerotic changes are seen related to the thoracic aorta. Normal cardiac size. No pulmonary vascular congestion. OSSEOUS STRUCTURES: No significant abnormalities. VISUALIZED UPPER ABDOMEN: Normal. OTHER FINDINGS: None. IMPRESSION: Trace left pleural effusion. None identified at the right. No pneumothorax bilaterally. No infiltrate bilaterally.
--- NOTE | 2018-06-29 18:35 | CP.PCM.PN ---
Subjective - Date & Time of Evaluation Date of Evaluation: 06/29/18 Time of Evaluation: 22:22 - Subjective Subjective: Above noted Objective - Vital Signs/Intake and Output Vital Signs (last 24 hours): Temp Pulse Resp BP Pulse Ox 101.4 F H 82 18 115/56 L 94 L 06/29/18 12:11 06/29/18 12:11 06/29/18 12:11 06/29/18 12:11 06/29/18 12:11 Intake and Output: 06/29/18 06/29/18 06:59 18:59 Intake Total 632 Balance 632 - Labs Labs: 06/29/18 08:30 06/29/18 08:30 PT 14.3 Seconds (9.8-13.1) H 06/26/18 13:27 INR 1.3 06/26/18 13:27 APTT 31.4 Seconds (25.6-37.1) 06/26/18 13:27 Assessment and Plan - Assessment and Plan (Free Text) Assessment: Anemia Leukocytosis thrombocytopenia CML ?? Bx ?? results still pending Hematology Transfused Epistaxis ENT Chest discomfort on exertion 2 to Anemia?? Cardiology
--- NOTE | 2018-06-29 19:50 | CP.PCM.PN ---
Subjective - Date & Time of Evaluation Date of Evaluation: 06/29/18 Time of Evaluation: 11:00 - Subjective Subjective: Feeling better s/p transfusion Objective - Vital Signs/Intake and Output Vital Signs (last 24 hours): Temp Pulse Resp BP Pulse Ox 101.4 F H 82 18 115/56 L 94 L 06/29/18 12:11 06/29/18 12:11 06/29/18 12:11 06/29/18 12:11 06/29/18 12:11 - Labs Labs: 06/29/18 08:30 06/29/18 08:30 PT 14.3 Seconds (9.8-13.1) H 06/26/18 13:27 INR 1.3 06/26/18 13:27 APTT 31.4 Seconds (25.6-37.1) 06/26/18 13:27 - Head Exam Head Exam: ATRAUMATIC - Eye Exam Eye Exam: Normal appearance - ENT Exam ENT Exam: Mucous Membranes Dry - Respiratory Exam Respiratory Exam: NORMAL BREATHING PATTERN - Cardiovascular Exam Cardiovascular Exam: +S1, +S2 - GI/Abdominal Exam GI & Abdominal Exam: Normal Bowel Sounds Assessment and Plan (1) Myeloid leukemia Assessment & Plan: f/u BCR/ABL FISH 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
== END 2018-06-29 15:30 | disposition left against medical advice (07) | DRG 842 ==
LOC: H.ER 11:58 → H.ERHOLD 15:05 → H.TEL 17:27
PROVIDERS: ADMIT Family Medicine Geriatric Medicine; ATTEND Family Medicine Geriatric Medicine
PROC: 30233R1 Transfusion of Nonautologous Platelets into Peripheral Vein, Percutaneous Approach (ICD-10-PCS; principal; 2018-06-26)
PROC: 30233N1 Transfusion of Nonautologous Red Blood Cells into Peripheral Vein, Percutaneous Approach (ICD-10-PCS; 2018-06-26)
DX: C92.90 Myeloid leukemia, unspecified, not having achieved remission (principal); D69.6 Thrombocytopenia, unspecified; D64.9 Anemia, unspecified; R07.89 Other chest pain; R04.0 Epistaxis; F43.21 Adjustment disorder with depressed mood; E78.00 Pure hypercholesterolemia, unspecified; I10 Essential (primary) hypertension; Z96.642 Presence of left artificial hip joint